=== PATIENT | male | born 1965 | race Caucasian/White ===

== ENCOUNTER 2017-08-29 06:06 | Day surgery (SDC) | payer OTHER ==
[2017-08-29] MEDS: BUPIVACAINE 0.25% (MPF) 30 ML INJ INJ
[2017-08-29] MEDS: POLYMYXIN/BACITRACIN 1L IRRIG IRR
[~2017-08-29 06:06] MED LIST: CEFAZOLIN 1 GM/50 ML (PMX) 50 ML IVPB; SOD CHLORIDE 0.9% 1,000 ML IV
[2017-08-29 07:09] LABS: WHITE BLOOD COUNT 5.1 10^3/ul (4.8-10.8)
[2017-08-29 07:09] LABS: ADD MAN DIFF? NO; BASOPHILS % 0.4 % (0.0-2.0); EOSINOPHILS # 0.2 10^3/ul (0.0-0.5); EOSINOPHILS % 3.9 % (0.0-7.0); HEMATOCRIT 41.5 % (42.0-52.0); LYMPHOCYTES # 1.8 10^3/ul (0.8-2.9); LYMPHOCYTES % 35.1 % (15.0-51.0); MEAN CORPUSCULAR HEMOGLOBIN 28.9 pg (29.0-33.0); MEAN CORPUSCULAR HGB CONC 33.7 g/dl (32.0-37.0); MEAN CORPUSCULAR VOLUME 85.6 fl (82.0-101.0); MEAN PLATELET VOLUME 11.1 fl (7.4-10.4); MONOCYTE # 0.5 10^3/ul (0.3-0.9); MONOCYTES % 10.3 % (0.0-11.0); NEUTROPHIL # 2.6 10^3/ul (1.6-7.5); NEUTROPHILS % 50.1 % (39.0-77.0); PLATELET COUNT 185 10^3/UL (140-415); RED BLOOD COUNT 4.85 10^6/ul (4.70-6.10); RED CELL DISTRIBUTION WIDTH 13.2 % (11.5-14.5)
[2017-08-29 07:15] LABS: INR 1.03; PROTIME 13.6 Sec (11.9-14.9); PT RATIO 1.1
[2017-08-29 07:16] LABS: PARTIAL THROMBOPLASTIN TIME 29.7 Sec (25.0-35.0)
[2017-08-29 07:23] LABS: ALANINE AMINOTRANSFERASE 41 IU/L (13-69); ALBUMIN 4.2 g/dl (3.3-4.9); ALBUMIN/GLOBULIN RATIO 1.16; ALKALINE PHOSPHATASE 79 IU/L (42-121); ANION GAP 15 (8-16); ASPARTATE AMINO TRANSFERASE 37 IU/L (15-46); BILIRUBIN,INDIRECT 0.4 mg/dl (0-1.1); BILIRUBIN,TOTAL 0.4 mg/dl (0.2-1.3); CARBON DIOXIDE 27 mmol/L (21-31); CHLORIDE 105 mmol/L (97-110); GLUCOSE 98 mg/dl (70-220); TOTAL PROTEIN 7.8 g/dl (6.1-8.1)
[2017-08-29 07:30] LABS: BLOOD UREA NITROGEN 20 mg/dl (7-20); CALCIUM 8.9 mg/dl (8.4-10.2); CREATININE 0.83 mg/dl (0.61-1.24); POTASSIUM 4.2 mmol/L (3.5-5.1); SODIUM 143 mmol/L (135-144)
[2017-08-29] MEDS ORDERED: BUPIVACAINE 0.25% (MPF) 30 ML INJ (07:56)
[2017-08-29] MEDS ORDERED: OXYCODONE/ACETAMINOPHEN (5/325) TAB PO ×2 (08:00)
[2017-08-29] MEDS ORDERED: HYDROmorphONE (0.2 MG/ML) 10ML SYG IV ×2 (08:00)
[2017-08-29] MEDS ORDERED: DIPHENHYDRAMINE 50 MG INJ IV (08:00)
[2017-08-29] MEDS ORDERED: MIDAZOLAM 1 MG/ML 2 ML INJ IV (08:00)
[2017-08-29] MEDS ORDERED: LABETALOL HCL 20MG INJ IV (08:00)
[2017-08-29] MEDS ORDERED: EPHEDrine SULFATE 50 MG/5 ML SYG IV (08:00)
[2017-08-29] MEDS ORDERED: hydrALAzine 20 MG INJ IV (08:00)
[2017-08-29] MEDS ORDERED: METOCLOPRAMIDE 10 MG INJ IV (08:00)
[2017-08-29] MEDS ORDERED: FENTAnyl 50 MCG/ML VIAL IV ×3 (08:00)
[2017-08-29] MEDS ORDERED: LIDOCAINE 2% (SDV) 5 ML INJ (08:02)
[2017-08-29] MEDS ORDERED: MEPERIDINE 100 MG INJ (08:02)
[2017-08-29] MEDS ORDERED: ROCURONIUM 50 MG INJ (08:02)
[2017-08-29] MEDS ORDERED: NEOSTIGMINE 3 MG/3 ML SYRINGE ×2 (08:02→08:59)
[2017-08-29] MEDS ORDERED: SUCCINYLCHOLINE CHLORIDE 100 MG/5 ML SYG IV (08:02)
[2017-08-29] MEDS ORDERED: PROPOFOL 20 ML (08:02)
[2017-08-29] MEDS ORDERED: GLYCOPYRROLATE 0.4 MG INJ ×2 (08:02→08:59)
[2017-08-29] MEDS ORDERED: CEFAZOLIN 1 GM INJ (08:59)
[2017-08-29] MEDS: ONDANSETRON 4 MG INJ IV (09:35)
[2017-08-29] MEDS: HYDROmorphONE (0.2 MG/ML) 10ML SYG IV ×3 (09:35→10:12)
[2017-08-29] MEDS: HYDROCODONE/APAP (5/325) TAB PO (09:54)
[2017-08-29] MEDS: MEPERIDINE 25 MG INJ IV (10:00)
== END 2017-08-29 11:35 | disposition home or self-care (01) ==
LOC: SDS 06:06
DX: K43.6 Other and unspecified ventral hernia with obstruction, without gangrene (principal)
CPT/HCPCS: 49653; 80053; 85025; 85610; 85730; 88302